=== PATIENT | female | born 1970 | race Caucasian/White ===

== ENCOUNTER 2021-02-22 14:50 | Outpatient (RCR) | payer OTHER, SELFPAY ==
--- NOTE | 2021-02-22 16:59 | PTOPEVAL ---
Thank you for referring Amber Fishman to [facility].? The patient is scheduled to be seen for therapy? ____x/week for ___ weeks. Please review, sign, date and return this plan of care DREW. I agree with and certify that the following plan of care is medically necessary. Referring Physician Date Admitting Provider: Attending Provider: Bird Martinez, MD Referring Provider: *PT Outpatient Evaluation Start: 02/22/21 15:05 Freq: Status: Active Protocol: Document 02/22/21 15:05 [facility] (Rec: 02/22/21 16:05 [facility] [id number]) Therapy Assessment Status Assessment Status Assessment Status Evaluation Evaluation Information Problem Diagnosis L shoulder pain Onset 02/20/21 Additional Evaluation Detail quick dash = 59% functionally declined Subjective Information patient reports she is having Query Text:As Reported By Patient/ pain deep in the L shoulder Family and into the upper trap. she reports lifting her arm/ shoulde rup will create burning down her back. she reports the pain is progressing for about 1 year. she reports she is getting worse. she reports pain will eventually start to involve her neck. patient reports she has not had any imaging of the neck. she reports no imaging as of this date. she reports no injection. she reports she is taking medication for pain management and mm relaxation. patient reports no injury. she reports increased pain with laying down on her sides. she reports also increased pain with bending forward and lifting objects from the floor . Prior Level of Function Comments Additional Prior Level of Function patient reports she has had Comments difficulty with taking the trash out at home, bending forward to reach for items on the floor, mopping, and sleeping. she reports no headaches, but reports her pain does wake her up at night . Pain Assessment Timing of Pain Assessment
--- NOTE | 2021-03-03 16:13 | PTOPEVAL ---
Thank you for referring Amber Fishman to [facility].? The patient is scheduled to be seen for therapy? ____x/week for ___ weeks. Please review, sign, date and return this plan of care DREW. I agree with and certify that the following plan of care is medically necessary. Referring Physician Date Admitting Provider: Attending Provider: Bird Martinez, MD Referring Provider: *PT Outpatient Evaluation Start: 02/22/21 15:05 Freq: Status: Active Protocol: Document 02/22/21 15:05 [facility] (Rec: 02/22/21 16:05 [facility] [id number]) Therapy Assessment Status Assessment Status Assessment Status Evaluation Evaluation Information Problem Diagnosis L shoulder pain Onset 02/20/21 Additional Evaluation Detail quick dash = 59% functionally declined Subjective Information patient reports she is having Query Text:As Reported By Patient/ pain deep in the L shoulder Family and into the upper trap. she reports lifting her arm/ shoulde rup will create burning down her back. she reports the pain is progressing for about 1 year. she reports she is getting worse. she reports pain will eventually start to involve her neck. patient reports she has not had any imaging of the neck. she reports no imaging as of this date. she reports no injection. she reports she is taking medication for pain management and mm relaxation. patient reports no injury. she reports increased pain with laying down on her sides. she reports also increased pain with bending forward and lifting objects from the floor . Prior Level of Function Comments Additional Prior Level of Function patient reports she has had Comments difficulty with taking the trash out at home, bending forward to reach for items on the floor, mopping, and sleeping. she reports no headaches, but reports her pain does wake her up at night . Pain Assessment Timing of Pain Assessment
--- NOTE | 2021-04-24 09:34 | PCPTNOTE ---
04/24/21 - mrs. weathers has not been to therapy in over a month. as of this date, she will be dc'd from skilled PT services and all progress towards goals will be taken from her most recent evaluation/note.
== END 2021-03-10 10:19 | disposition home or self-care (01) ==
LOC: CHSPT 14:50
PROVIDERS: PCP Emergency Medicine; Visit Provider Emergency Medicine
DX: M25.512 Pain in left shoulder (principal); G89.29 Other chronic pain; M62.838 Other muscle spasm
CPT/HCPCS: 97014; 97110; 97140; 97161; G0283

== ENCOUNTER 2022-06-09 14:14 | Emergency (ER) | payer BC, OTHER, SELFPAY ==
--- NOTE | 2022-06-09 14:35 | ED.GENADULT ---
HPI - General Adult General Chief complaint: Unspecified Stated complaint: cough with rib pain after blood pressure medicine Source: patient Mode of arrival: ambulatory Limitations: no limitations History of Present Illness HPI narrative: 51 year old female presents to the Emergency Department complaining of cough productive of green phlegm. Onset 06/01/22. Was started on Lisinopril 05/21, but discontinued due to cough 06/03/22. Patient is smoker. Denies fever, nausea, vomiting, diarrhea. No known exposure. Patient has done 3 home Covid tests that have all been negative. Onset (ago): day(s) () Location: chest (cough) Radiation: non-radiation Severity: mild Pain Consistency: other (with cough) Associated symptoms: cough Related Data Home Medications Medication Instructions Recorded Confirmed apixaban 5 mg tablet (Eliquis) 5 mg PO BID 06/09/22 06/09/22 atorvastatin 20 mg tablet 20 mg PO DAILY 06/09/22 06/09/22 buspirone 15 mg tablet 15 mg PO TID 06/09/22 06/09/22 furosemide 20 mg tablet 20 mg PO DAILY 06/09/22 06/09/22 lorazepam 0.5 mg tablet 0.5 mg PO DAILY PRN Anxiety 06/09/22 06/09/22 losartan 25 mg tablet 25 mg PO DAILY 06/09/22 06/09/22 prednisone 20 mg tablet 40 mg PO DAILY 06/09/22 06/09/22 venlafaxine 150 mg 150 mg PO DAILY 06/09/22 06/09/22 capsule,extended release 24 hr Allergies Allergy/AdvReac Type Severity Reaction Status Date / Time No Known Allergies Allergy Verified 06/09/22 14:49 Review of Systems Review of Systems: All systems reviewed & are unremarkable except as noted in HPI and below Constitutional: Constitutional: Reports as per HPI, Reports no additional constitutional complaints, Denies body ache(s), Denies chills, Reports difficulty sleeping and Denies fever(s) Eyes: Eyes: Reports as per HPI and Reports no additional eye complaints ENT: Reports system reviewed and no additional complaints, except as documented and Reports as per HPI Cardiovascular: Cardiovascular: Reports as per HPI and Reports no additional cardiovascular complaints Respiratory: Respiratory: Reports as per HPI, Reports no additional respiratory complaints, Reports change in phlegm color (green) and Reports cough Gastrointestinal: Gastrointestinal: Reports as per HPI, Reports no additional gastrointestinal complaints, Denies constipation, Denies diarrhea, Denies nausea and Denies vomiting Genitourinary: Genitourinary: Reports no additional female genitourinary complaints and Reports as per HPI Musculoskeletal: Musculoskeletal: Reports no additional musculoskeletal complaints and Reports as per HPI Integumentary/Breasts: Skin/Breast: Reports system reviewed and no additional complaints, except as docu and Reports as per HPI Neurologic: Reports system reviewed and no additional complaints, except as documented and Reports as per HPI Psychiatric: Psychiatric: Reports no additional psychiatric complaints and Reports as per HPI Endocrine: Endocrine: Reports no additional endocrine complaints and Reports as per HPI Hematologic/Lymphatic: Hematologic/Lymphatic: Reports no additional hematologic/lymphatic complaints and Reports as per HPI Allergic/Immunologic: Allergic/Immunologic: Reports no additional allergic/immunologic complaints and Reports as per HPI Exam Const: General: cooperative Nutritional Appearance: obese Orientation/consciousness: oriented to person Limitations: no limitations HENMT: Head: normal to inspection General nose exam: Normal external nose present Face and sinus: normal facial exam Mouth: Yes Normal oral and palatal mucosa present, Yes oropharynx normal and Yes moist mucous membranes abnormal Throat: posterior oropharynx normal Eyes: General: appearance normal, both eyes and all related structures Neck: Neck: normal visual inspection Chest: Chest palpation & inspection: normal inspection of the chest Resp: Effort & Inspection: normal respiratory effort, able to speak in complete sentences
[2022-06-09 14:50] VITALS: BP 147/84; PULSE 103; RESP 20; TEMP 36.6; O2SAT 98
[2022-06-09 14:55] VITALS: RESP 20
[2022-06-09 14:58] VITALS: BP 143/84; PULSE 103; RESP 20; TEMP 36.6; O2SAT 98
== END 2022-06-09 15:06 | disposition home or self-care (01) ==
PROVIDERS: Emergency Provider Emergency Medicine; PCP Nurse Practitioner Family
DX: J40 Bronchitis, not specified as acute or chronic (principal)
CPT/HCPCS: 99283

== ENCOUNTER 2024-07-25 08:52 | Emergency (ER) | payer BC, SELFPAY ==
[2024-07-25 08:56] VITALS: BP 155/94; PULSE 88; RESP 18; TEMP 36.2; O2SAT 96
[2024-07-25 09:06] LABS: Add Urine Microscopic? YES; Appearance Urine Sl Cloudy (Clear); Bilirubin Urine Negative (Negative); Blood Urine 3+ (Negative); Color Urine Light Yellow (Yellow); Glucose Urine UA Negative (Negative); Ketones Urine Negative (Negative); Leukocyte Esterase Ur 1+ LEU/UL (Negative); Nitrate Urine Negative (Negative); Protein Urine Negative (Negative); Specific Grav Ur 1.015 (1.010-1.020); Urobilinogen Urine 0.2 mg/dL (0.2-1.0); pH Urine 6.5 (5.0-8.0)
[2024-07-25 09:23] LABS: Bacteria Urine Trace /hpf; RBC Urine 21-50 /hpf (0-2); Squamous Epithelial Cell Urine Moderate /hpf (Few)
--- NOTE | 2024-07-25 09:35 | ED.FEMALEGU ---
HPI - Female Genitourinary General Chief complaint: Urogenital-Female Stated complaint: burning when urinating Source: patient Mode of arrival: ambulatory Limitations: no limitations History of Present Illness HPI Narrative: this is a 53-year-old female who presents with urinary tract symptoms with dysuria and bladder pressure with no flank pain no fever chills no hematuria nausea vomiting. MD elicited complaint: dysuria Onset (ago): day(s) Severity: mild Related Data Home Medications Medication Instructions Recorded Confirmed apixaban 5 mg tablet (Eliquis) 5 mg PO BID 06/09/22 07/25/24 atorvastatin 20 mg tablet 40 mg PO DAILY 06/09/22 07/25/24 lorazepam 0.5 mg tablet 0.5 mg PO DAILY PRN Anxiety 06/09/22 07/25/24 amlodipine 5 mg tablet 5 mg PO DAILY 07/25/24 07/25/24 hydrochlorothiazide 25 mg tablet 25 mg PO DAILY 07/25/24 07/25/24 lactulose 10 gram/15 mL oral 15 ml PO PRN PRN . 07/25/24 07/25/24 solution trazodone 50 mg tablet 50 mg PO DAILY PRN Pain 07/25/24 07/25/24 vitamin B complex 1 tablet PO DAILY 07/25/24 07/25/24 vortioxetine 20 mg tablet 20 mg PO DAILY 07/25/24 07/25/24 (Trintellix) Allergies Allergy/AdvReac Type Severity Reaction Status Date / Time No Known Allergies Allergy Verified 06/09/22 14:49 Review of Systems Review of Systems: All systems reviewed & are unremarkable except as noted in HPI and below PMFSH Past Medical History Medical History History of DVT (deep vein thrombosis) Exam Const: General: healthy appearing and no acute distress Nutritional Appearance: well nourished Orientation/consciousness: patient oriented x3 Limitations: no limitations Neck: Neck: normal visual inspection Chest: Chest palpation & inspection: normal inspection of the chest Resp: Effort & Inspection: normal respiratory effort Auscultation: clear to auscultation bilaterally Cardio: Rate: regular rate Rhythm: regular rhythm GI: GI Palp: Yes Soft to palpation Urinary Catheter: Urinary Catheter: patent and draining Back/Spine/Pelvis: Back: no CVA tenderness Skin: General skin exam: normal color Rashes: no rashes Course Course Emergency Course: urinalysis shows positive for UTI will give a dose Macrobid and will send antibiotics to patient's local pharmacy. Vital Signs Vital signs: Vital Signs Temperature 36.2 C L 07/25/24 08:56 Pulse Rate 88 07/25/24 08:56 Respiratory Rate 18 07/25/24 08:56 Blood Pressure 155/94 H 07/25/24 08:56 Pulse Oximetry 96 07/25/24 08:56 Oxygen Delivery Room Air 07/25/24 08:56 Temperature 36.2 C L 07/25/24 08:56 Pulse Rate 88 07/25/24 08:56 Respiratory Rate 18 07/25/24 08:56 Blood Pressure 155/94 H 07/25/24 08:56 Pulse Oximetry 96 07/25/24 08:56 Oxygen Delivery Room Air 07/25/24 08:56 MDM - Female Genitourinary Lab Data Labs: Lab Results 07/25/24 Range/Units 08:01 Urine Color Light yellow (Yellow) Urine Appearance Sl cloudy A (Clear) Urine pH 6.5 (5.0-8.0) Ur Specific [place] 1.015 (1.010-1.020) Urine Protein Negative (Negative) Urine Glucose (UA) Negative (Negative) Urine Ketones Negative (Negative) Ur Blood (Man) 3+ H (Negative) Urine Nitrate Negative (Negative) Urine Bilirubin Negative (Negative) Urine Urobilinogen 0.2 (0.2-1.0) mg/dL Leukocyte Esterase Rfl 1+ H (Negative) HEMA/UL Urine RBC 21-50 H (0-2) /hpf Urine WBC 10-15 H (0-3) /hpf Ur Squamous Epith Cells Moderate H (Few) /hpf Urine Bacteria Trace (None) /hpf Critical Care Time Critical Care Time Critical Care Time: No Discharge Plan Discharge Clinical Impression: Urinary tract infection Qualifiers: Urinary tract infection type: acute cystitis Hematuria presence: without hematuria Qualified Code(s): N30.00 - Acute cystitis without hematuria Patient Disposition: Home, Self-Care Condition: Stable Instru
[2024-07-25] MEDS: NITROFURANTOIN MONOHYD MACROCR 100 MG CAP PO (09:45)
--- NOTE | 2024-07-27 12:35 | PC.NURSE ---
final urine culture report reviewed. no growth isolated. no change in plan of care.
== END 2024-07-25 09:50 | disposition home or self-care (01) ==
PROVIDERS: Emergency Provider Emergency Medicine
DX: N30.00 Acute cystitis without hematuria (principal); Z79.01 Long term (current) use of anticoagulants; Z79.899 Other long term (current) drug therapy; Z86.718 Personal history of other venous thrombosis and embolism
CPT/HCPCS: 81001; 87086; 99283; A9270